=== PATIENT | female | born 1950 | race Caucasian/White ===

== ENCOUNTER → 2016-05-25 | Outpatient (REF) | payer OTHER ==
[~2016-05-25] MED LIST: ALBU17IN INH; CELE-19 PO; CLOB-49 TOP; IPRA2IN INH; OMEP40CA2 PO; PRIM250T5 PO; VESI10TA PO
== END ==
LOC: M SMT 12:10
PROVIDERS: ATTEND Nurse Practitioner Women's Health
DX: N39.41 Urge incontinence (principal)

== ENCOUNTER → 2016-06-17 | Outpatient (REF) | payer OTHER ==
[2016-06-17 12:57] LABS: ALBUMIN 3.8 GM/DL (3.2-5.2); ALBUMIN/GLOBULIN RATIO 1.23 (1.00-1.93); ALKALINE PHOSPHATASE 68 U/L (45-117); ALT/SGPT 23 U/L (12-78); ANION GAP 9 MEQ/L (8-16); AST/SGOT 21 U/L (15-37); BILIRUBIN,TOTAL 0.4 MG/DL (0.2-1.0); BLOOD UREA NITROGEN 19 MG/DL (7-18); CALCIUM LEVEL 8.8 MG/DL (8.8-10.2); CARBON DIOXIDE LEVEL 29 MEQ/L (21-32); CHLORIDE LEVEL 104 MEQ/L (98-107); CREATININE FOR GFR 0.92 MG/DL (0.55-1.02); GLOMERULAR FILTRATION RATE > 60.0 (>45); GLUCOSE, FASTING 113 MG/DL (80-110); POTASSIUM SERUM 4.3 MEQ/L (3.5-5.1); SODIUM LEVEL 142 MEQ/L (136-145); TOTAL PROTEIN 6.9 GM/DL (6.4-8.2)
== END ==
LOC: M SFHCADAM 10:34
PROVIDERS: ATTEND Physician Assistant
DX: E11.9 Type 2 diabetes mellitus without complications (principal)

== ENCOUNTER → 2016-06-24 | Outpatient (REF) | payer OTHER | LOC: M LAB REF 20:07 | PROVIDERS: ATTEND Nurse Practitioner Women's Health | DX: E11.9 Type 2 diabetes mellitus without complications (principal); N39.41 Urge incontinence ==

== ENCOUNTER 2016-10-19 12:51 | Outpatient (CLI) | payer OTHER ==
[~2016-10-19] VITALS: Ht 157.5 cm; Wt 92.7 kg
[~2016-10-19 12:51] MED LIST changes: -CELE-19 PO; +CELE1CAP4 PO; -PRIM250T5 PO; +PRIM250T8 PO; -VESI10TA PO; +VESI10TA2 PO
[2016-10-19] MEDS ORDERED: ZOLEDRONIC ACID 5 MG in APPROPRIATE DILUENT 1 EA IV ONE (13:00)
[2016-10-19] MEDS ORDERED: ALBU83IN INH (14:23)
== END 2016-10-19 12:55 | disposition home or self-care (01) ==
LOC: M INFU 12:51
PROVIDERS: ATTEND Nurse Practitioner Women's Health
DX: M81.0 Age-related osteoporosis without current pathological fracture (principal); Z79.899 Other long term (current) drug therapy; Z78.0 Asymptomatic menopausal state; Z87.891 Personal history of nicotine dependence; Z91.040 Latex allergy status
CPT/HCPCS: 96365; J3489

== ENCOUNTER → 2016-11-19 | Outpatient (CLI) | payer OTHER ==
[~2016-11-19] MED LIST changes: +ALBU83IN INH
--- NOTE | 2016-11-19 18:28 | REP ---
Cervical spine series: Eight views: History: Paresthesias, pain in the neck radiating to the left forearm. Findings: Cervical vertebral body heights are preserved. Alignment is normal. Disc spaces are maintained. Swimmers lateral view shows no additional abnormality. AP and open-mouth views show that the patient is edentulous. There is minimal facet hypertrophy in the mid cervical spine bilaterally consistent with osteoarthritis. Lateral flexion extension views show no subluxation or instability. Oblique images show intact neural foramina bilaterally at each cervical level and normally aligned facets. There is some diffuse osteopenia. Impression: Diffuse osteopenia. Mild osteoarthritic facet disease. Otherwise negative cervical spine radiographs. Signed by Jelani Blank MD 11/19/2016 07:40 P
--- NOTE | 2016-11-19 18:29 | REP ---
Left forearm: Two views: History: Pain. Findings: AP and lateral views show mild diffuse osteopenia. There is lateral epicondylar spurring. There is osteoarthritis at the carpal-metacarpal articulation of the thumb. Bones, joints, and soft tissues are otherwise unremarkable. Impression: Spurring of the lateral epicondyle and osteoarthritis at the first carpometacarpal articulation. Otherwise negative. Signed by Jelani Blank MD 11/19/2016 07:40 P
== END ==
LOC: M ADAMS 15:45
PROVIDERS: ATTEND Family Medicine
DX: R25.2 Cramp and spasm (principal); R20.0 Anesthesia of skin; M54.2 Cervicalgia; M18.52 Other unilateral secondary osteoarthritis of first carpometacarpal joint, left hand

== ENCOUNTER → 2017-07-21 | Outpatient (REF) | payer OTHER ==
[2017-07-21 19:34] LABS: HEMATOCRIT 35.9 % (36.0-47.0); HEMOGLOBIN 11.6 g/dl (12.0-15.5); MEAN CORPUSCULAR HEMOGLOBIN 29.8 pg (27.0-33.0); MEAN CORPUSCULAR HGB CONC 32.3 g/dl (32.0-36.5); MEAN CORPUSCULAR VOLUME 92.3 fl (80.0-96.0); PLATELET COUNT, AUTOMATED 213 10^3/uL (150-450); RED BLOOD COUNT 3.89 10^6/uL (4.00-5.40); RED CELL DISTRIBUTION WIDTH 13.6 % (11.5-14.5); WHITE BLOOD COUNT 7.1 10^3/uL (4.0-10.0)
[2017-07-21 19:49] LABS: ESTIMATED AVERAGE GLUCOSE 128 MG/DL (60-110); HEMOGLOBIN A1c 6.1 %
[2017-07-21 19:57] LABS: ALBUMIN 4.1 GM/DL (3.2-5.2); ALBUMIN/GLOBULIN RATIO 1.24 (1.00-1.93); ALKALINE PHOSPHATASE 87 U/L (45-117); ALT/SGPT 29 U/L (12-78); AMYLASE 32 U/L (25-115); ANION GAP 7 MEQ/L (8-16); AST/SGOT 25 U/L (7-37); BILIRUBIN,TOTAL 0.3 MG/DL (0.2-1.0); BLOOD UREA NITROGEN 13 MG/DL (7-18); CALCIUM LEVEL 9.3 MG/DL (8.8-10.2); CARBON DIOXIDE LEVEL 30 MEQ/L (21-32); CHLORIDE LEVEL 105 MEQ/L (98-107); CHOLESTEROL LEVEL 124 MG/DL (<200); CHOLESTEROL RISK RATIO 2.818 (<5); CREATININE FOR GFR 1.02 MG/DL (0.55-1.30); FREE T4 1.03 NG/DL (0.76-1.46); GLOMERULAR FILTRATION RATE 58.1 (>45); GLUCOSE, FASTING 108 MG/DL (70-100); HDL CHOLESTEROL 44 MG/DL (>40); LDL CHOLESTEROL 30.4 MG/DL (<100); LIPASE 108 U/L (73-393); NON-HDL-C 80 MG/DL; POTASSIUM SERUM 4.3 MEQ/L (3.5-5.1); SODIUM LEVEL 142 MEQ/L (136-145); TOTAL PROTEIN 7.4 GM/DL (6.4-8.2); TRIGLYCERIDES LEVEL 248 MG/DL (<150)
[2017-07-22 07:51] LABS: FOLATE 4.1 NG/ML; VITAMIN B12 LEVEL 246 PG/ML
== END ==
LOC: M SFHCADAM 15:01
DX: J44.9 Chronic obstructive pulmonary disease, unspecified (principal); E13.9 Other specified diabetes mellitus without complications; E03.9 Hypothyroidism, unspecified; E53.8 Deficiency of other specified B group vitamins; R10.13 Epigastric pain

== ENCOUNTER → 2017-08-09 | Outpatient (REF) | payer OTHER ==
[2017-08-09 20:24] LABS: CREATININE, URINE 82.9 MG/DL; MALB URINE SIEMENS 45.3 MG/L; MAU/CREAT RATIO 54.6 MCG/MG (0.0-30.0)
== END ==
LOC: M SFHCADAM 13:27
DX: E13.9 Other specified diabetes mellitus without complications (principal)

== ENCOUNTER → 2017-09-28 | Outpatient (REF) | payer OTHER ==
[2017-09-28 19:38] LABS: HEMOGLOBIN 11.2 g/dl (12.0-15.5); MEAN CORPUSCULAR VOLUME 93.8 fl (80.0-96.0); PLATELET COUNT, AUTOMATED 254 10^3/uL (150-450); RED BLOOD COUNT 3.73 10^6/uL (4.00-5.40); RED CELL DISTRIBUTION WIDTH 13.9 % (11.5-14.5); WHITE BLOOD COUNT 8.1 10^3/uL (4.0-10.0)
[2017-09-28 19:42] LABS: ALBUMIN 4.1 GM/DL (3.2-5.2); ALBUMIN/GLOBULIN RATIO 1.21 (1.00-1.93); ALKALINE PHOSPHATASE 75 U/L (45-117); ALT/SGPT 45 U/L (12-78); ANION GAP 8 MEQ/L (8-16); AST/SGOT 28 U/L (7-37); BILIRUBIN,TOTAL 0.2 MG/DL (0.2-1.0); BLOOD UREA NITROGEN 16 MG/DL (7-18); CALCIUM LEVEL 9.3 MG/DL (8.8-10.2); CARBON DIOXIDE LEVEL 29 MEQ/L (21-32); CHLORIDE LEVEL 106 MEQ/L (98-107); CREATININE FOR GFR 0.93 MG/DL (0.55-1.30); GLOMERULAR FILTRATION RATE > 60.0 (>45); GLUCOSE, FASTING 82 MG/DL (70-100); POTASSIUM SERUM 4.5 MEQ/L (3.5-5.1); SODIUM LEVEL 143 MEQ/L (136-145); TOTAL PROTEIN 7.5 GM/DL (6.4-8.2)
== END ==
LOC: M SFHCADAM 17:10
DX: R06.09 Other forms of dyspnea (principal)

== ENCOUNTER → 2017-09-28 | Outpatient (CLI) | payer OTHER | LOC: M ADAMS 17:17 | DX: R06.09 Other forms of dyspnea (principal); I51.7 Cardiomegaly | CPT/HCPCS: 71046 ==

== ENCOUNTER 2017-10-17 10:51 | Outpatient (CLI) | payer OTHER ==
[2017-10-17] MEDS: ZOLEDRONIC ACID 5 MG in APPROPRIATE DILUENT 1 EA IV (11:31)
== END 2017-10-17 12:25 | disposition home or self-care (01) ==
LOC: M INFU 10:51
DX: M81.0 Age-related osteoporosis without current pathological fracture (principal); Z79.899 Other long term (current) drug therapy; Z91.040 Latex allergy status
CPT/HCPCS: J3489

== ENCOUNTER → 2017-11-01 | Outpatient (CLI) | payer OTHER | LOC: M CARPUL 07:50 | DX: R06.09 Other forms of dyspnea (principal); I51.7 Cardiomegaly; I35.1 Nonrheumatic aortic (valve) insufficiency; I27.20 Pulmonary hypertension, unspecified | CPT/HCPCS: 93306 ==

== ENCOUNTER → 2017-12-15 | Outpatient (REF) | payer MEDICARE, MEDICAID ==
[2017-12-15 19:42] LABS: HEMATOCRIT 34.2 % (36.0-47.0); HEMOGLOBIN 10.8 g/dl (12.0-15.5); MEAN CORPUSCULAR HEMOGLOBIN 30.3 pg (27.0-33.0); MEAN CORPUSCULAR HGB CONC 31.6 g/dl (32.0-36.5); MEAN CORPUSCULAR VOLUME 95.8 fl (80.0-96.0); PLATELET COUNT, AUTOMATED 251 10^3/uL (150-450); RED BLOOD COUNT 3.57 10^6/uL (4.00-5.40); RED CELL DISTRIBUTION WIDTH 13.2 % (11.5-14.5)
[2017-12-15 20:00] LABS: ALBUMIN/GLOBULIN RATIO 1.29 (1.00-1.93); ALKALINE PHOSPHATASE 74 U/L (45-117); ALT/SGPT 30 U/L (12-78); ANION GAP 7 MEQ/L (8-16); AST/SGOT 25 U/L (7-37); BILIRUBIN,TOTAL 0.3 MG/DL (0.2-1.0); BLOOD UREA NITROGEN 12 MG/DL (7-18); CALCIUM LEVEL 9.1 MG/DL (8.8-10.2); CARBON DIOXIDE LEVEL 26 MEQ/L (21-32); CHLORIDE LEVEL 109 MEQ/L (98-107); CREATININE FOR GFR 0.94 MG/DL (0.55-1.30); ESTIMATED AVERAGE GLUCOSE 131 MG/DL (60-110); GLOMERULAR FILTRATION RATE > 60.0 (>45); GLUCOSE, FASTING 87 MG/DL (70-100); HEMOGLOBIN A1c 6.2 %; POTASSIUM SERUM 4.4 MEQ/L (3.5-5.1); SODIUM LEVEL 142 MEQ/L (136-145); TOTAL PROTEIN 7.1 GM/DL (6.4-8.2)
== END ==
LOC: M SFHCADAM 15:31
DX: R80.9 Proteinuria, unspecified (principal); E08.41 Diabetes mellitus due to underlying condition with diabetic mononeuropathy; E11.40 Type 2 diabetes mellitus with diabetic neuropathy, unspecified; Z23 Encounter for immunization
CPT/HCPCS: 80053

== ENCOUNTER → 2018-03-15 | Outpatient (CLI) | payer MEDICARE, MEDICAID ==
--- NOTE | 2018-03-15 16:27 | REPMRS ---
Patient History The patient states she had a clinical breast exam in 03/21 Patient is postmenopausal. Family history of breast cancer at age 50 or over in maternal aunt, breast cancer in sister, breast cancer at age 50 or over in niece. Benign cyst aspiration of the right breast, 1982. 3D TOMOSYNTHESIS WAS PERFORMED. Digital Woman Screen Mammo: March 15, 2018 - Exam #: [id number] Bilateral CC and MLO view(s) were taken. Technologist: Nadia Ly, Technologist Prior study comparison: February 01, 2017, digital woman screen mammo performed at [facility]. December 30, 2015, digital woman screen mammo performed at [facility]. FINDINGS: There are scattered fibroglandular densities. There is a fairly symmetric fibroglandular pattern in both breasts. There has been no interval development of masses, areas of architectural distortion or clusters of microcalcifications typical of malignancy. Assessment: BI-RADS/ACR category 2 mammogram. Benign finding(s). Recommendation Routine screening mammogram of both breasts in 1 year (for women over age 40). This mammogram was interpreted with the aid of an FDA-approved computer-aided dectection system. Electronically Signed By: Shamir Lanza MD 03/15/18 [id number]
== END ==
LOC: M WHC 13:38
PROVIDERS: ATTEND Nurse Practitioner Women's Health
DX: Z12.31 Encounter for screening mammogram for malignant neoplasm of breast (principal); Z78.0 Asymptomatic menopausal state; Z80.3 Family history of malignant neoplasm of breast; Z92.89 Personal history of other medical treatment
CPT/HCPCS: 77063; 77067; G0463

== ENCOUNTER → 2018-03-21 | Outpatient (CLI) | payer MEDICARE, MEDICAID ==
--- NOTE | 2018-03-21 16:15 | REP ---
HISTORY: Assess for ventral rent. Patient has a palpable mass anteriorly just to the right of midline inferior to the umbilicus. Multiple ultrasonographic images over the region of interest show a small 2 cm wide area of hypoechogenicity and seemingly with a concomitant ventral rent, the aperture of which appears to measure 2 cm. No abnormal bowel is present. IMPRESSION: Suspected small ventral hernia versus lipoma. CT may be better suited for further evaluation.
== END ==
LOC: M WHC 13:22
PROVIDERS: ATTEND Physician Assistant
DX: R19.03 Right lower quadrant abdominal swelling, mass and lump (principal)

== ENCOUNTER → 2018-04-20 | Outpatient (CLI) | payer MEDICARE, MEDICAID ==
[~2018-04-20] MED LIST changes: +GASTROGRAFIN SOLUTION 30ML (Q9963) As Ordered ONE; +ISOVUE-370 76% 100ML VIAL (Q9967) As Ordered ONE
[2018-04-20 15:24] LABS: BLOOD UREA NITROGEN 15 MG/DL (7-18); CREATININE FOR GFR 0.92 MG/DL (0.55-1.30); GLOMERULAR FILTRATION RATE > 60.0 (>45)
--- NOTE | 2018-04-20 17:58 | REP ---
CT abdomen and pelvis with IV and oral contrast: History: Incisional hernia without obstruction. Comparison CT study September 30, 2015. CT contrast dose: 100 ml of intravenous Isovue [address] findings: Preliminary digital rail transportation operator radiograph demonstrates an unremarkable bowel gas pattern. There are clips in right upper quadrant post cholecystectomy. There is mild diffuse fatty infiltration of the liver. No focal liver lesion is seen. Spleen is normal in size homogeneous in texture. No adrenal lesion is seen. The pancreas is unremarkable. The kidneys enhance symmetrically and are morphologically intact. No retroperitoneal mass or adenopathy is seen. There is left colonic diverticulosis without CT evidence of diverticulitis. There is a ventral hernia to the right of midline just below the level of the umbilicus transmitting abdominal fat. There is a tethered loop of adjacent transverse colon extending up to the abdominal wall but not through the defect. No obstructive lesion is seen. The appendix is not identified but there is no CT evidence to suggest inflammation or appendicitis. The uterus is surgically absent. Impression: Right para midline ventral hernia below the level of the umbilicus transmitting omental fat. There is tethering of adjacent loop of transverse colon but no obstruction. The defect in the anterior abdominal wall measures 19 mm in transverse dimension by 19 mm craniocaudal. Fatty infiltration of the liver is seen. Left colonic diverticulosis is noted. Post hysterectomy and cholecystectomy. Electronically Signed by Jelani Blank MD 04/20/2018 06:20 P
== END ==
LOC: M RAD 14:31 → M LAB 14:31
PROVIDERS: ATTEND Surgery
DX: K43.2 Incisional hernia without obstruction or gangrene (principal); K57.30 Diverticulosis of large intestine without perforation or abscess without bleeding; K76.0 Fatty (change of) liver, not elsewhere classified
CPT/HCPCS: 36415; 74177; 82565; 84520; Q9963; Q9967

== ENCOUNTER → 2018-07-12 | Outpatient (CLI) | payer MEDICARE, MEDICAID ==
[~2018-07-12] MED LIST changes: -GASTROGRAFIN SOLUTION 30ML (Q9963) As Ordered ONE; -ISOVUE-370 76% 100ML VIAL (Q9967) As Ordered ONE
--- NOTE | 2018-07-12 16:56 | REP ---
PA and lateral chest with: Comparison is 09/28/2017. There is increased radiodensity in the lower lobes on the posterior view. These could represent infiltrates or could be artifact from incomplete inspiratory effort. No infiltrates are identified on the PA view. Lung luo otherwise clear. The cardiac size is normal. The moody, mediastinum, skeletal structures are unremarkable. Impression: Questionable lower lobe infiltrates on the lateral view versus artifact from incomplete inspiration. Electronically Signed by Shamir Latham MD 07/12/2018 04:47 P
== END ==
LOC: M ADAMS 14:40
PROVIDERS: ATTEND Physician Assistant
DX: R91.8 Other nonspecific abnormal finding of lung field (principal); R06.09 Other forms of dyspnea; D64.9 Anemia, unspecified

== ENCOUNTER → 2018-07-12 | Outpatient (REF) | payer MEDICARE, MEDICAID ==
[2018-07-12 16:51] LABS: MEAN CORPUSCULAR HEMOGLOBIN 28.7 pg (27.0-33.0); MEAN CORPUSCULAR HGB CONC 31.4 g/dl (32.0-36.5); MEAN CORPUSCULAR VOLUME 91.4 fl (80.0-96.0); PLATELET COUNT, AUTOMATED 254 10^3/uL (150-450); RED BLOOD COUNT 3.83 10^6/uL (4.00-5.40); WHITE BLOOD COUNT 7.8 10^3/uL (4.0-10.0)
[2018-07-12 16:58] LABS: ALBUMIN 3.9 GM/DL (3.2-5.2); ALT/SGPT 25 U/L (12-78); BILIRUBIN,TOTAL 0.2 MG/DL (0.2-1.0); BLOOD UREA NITROGEN 20 MG/DL (7-18); CALCIUM LEVEL 9.1 MG/DL (8.8-10.2); CARBON DIOXIDE LEVEL 27 MEQ/L (21-32); CHLORIDE LEVEL 106 MEQ/L (98-107); CREATININE FOR GFR 0.92 MG/DL (0.55-1.30); FERRITIN 75 NG/ML (8-252); FREE T4 0.97 NG/DL (0.76-1.46); GLOMERULAR FILTRATION RATE > 60.0 (>45); GLUCOSE, FASTING 96 MG/DL (70-100); IRON (FE) 76 UG/DL (50-170); POTASSIUM SERUM 4.4 MEQ/L (3.5-5.1); SODIUM LEVEL 140 MEQ/L (136-145); TOTAL IRON BINDING CAPACITY 317 UG/DL (250-450); TOTAL PROTEIN 6.8 GM/DL (6.4-8.2)
[2018-07-12 17:01] LABS: FOLATE 11.2 NG/ML; VITAMIN B12 LEVEL 1164 PG/ML
== END ==
LOC: M SFHCADAM 14:36
PROVIDERS: ATTEND Physician Assistant
DX: R06.09 Other forms of dyspnea (principal); D64.9 Anemia, unspecified

== ENCOUNTER 2018-10-20 13:08 | Outpatient (CLI) | payer MEDICARE, MEDICAID ==
[~2018-10-20] VITALS: Ht 156.5 cm; Wt 96.4 kg
[2018-10-20 13:10] VITALS: BP 156/88
[2018-10-20] MEDS ORDERED: ZOLEDRONIC ACID 5 MG in APPROPRIATE DILUENT 1 EA IV ONE (13:30)
[2018-10-20 14:25] VITALS: BP 132/61
== END 2018-10-20 14:55 | disposition home or self-care (01) ==
LOC: M INFU 13:08
PROVIDERS: ATTEND Nurse Practitioner Women's Health
DX: M81.0 Age-related osteoporosis without current pathological fracture (principal)
CPT/HCPCS: 96365; J3489

== ENCOUNTER → 2018-11-20 | Outpatient (CLI) | payer MEDICARE, MEDICAID ==
--- NOTE | 2018-11-21 11:09 | REP ---
UNILATERAL RIGHT RIBS SERIES: FIVE VIEWS INCLUDING PA CHEST. HISTORY: Contusion of the right chest wall. COMPARISON CHEST X-RAY: July 12, 2018 FINDINGS: PA chest x-ray shows no evidence of pneumothorax or hydrothorax. Mediastinum is not widened. Heart size is normal. Pulmonary vasculature is not increased. No infiltrate is seen. There are clips in the right upper quadrant of the abdomen. Multiple views of the right ribcage show a nondisplaced fracture of the right 9th posterolateral rib. Opposite oblique radiograph demonstrates a nondisplaced fracture of the anterior end of the right 5th rib. No other rib fracture is seen. No bony destructive lesion is seen. IMPRESSION: There is evidence of recent nondisplaced fractures of the right anterior lateral 5th and posterolateral 9th ribs. Otherwise no acute disease. Electronically Signed by Jelani Blank MD 11/21/2018 07:12 P
== END ==
LOC: M ADAMS 18:45
PROVIDERS: ATTEND Physician Assistant
DX: S20.211A Contusion of right front wall of thorax, initial encounter (principal); X58.XXXA Exposure to other specified factors, initial encounter; Y92.89 Other specified places as the place of occurrence of the external cause

== ENCOUNTER → 2018-11-27 | Outpatient (REF) | LOC: M LAB 10:02 ==